=== PATIENT | male | born 1965 | race Caucasian/White ===

== ENCOUNTER → 2016-11-17 | Outpatient (CLI) | payer OTHER ==
--- NOTE | 2016-11-17 09:50 | PCVCIMAG ---
APPROVED REPORT Study performed: 11/17/2016 09:02:27 EXAM: Comprehensive 2D, Doppler, and color-flow Echocardiogram Status: routine Other Information Study Quality: Adequate Risk Factors: Cardiac Risk Factors: HTN Indications Rule out Endocarditis 2D Dimensions LVEF(%): 49.32 (>50%) IVSd: 11.43 (7-11mm) LVDd: 54.96 mm PWd: 11.29 (7-11mm) LVDs: 41.09 (25-40mm) Left Atrium: 41.14 (27-40mm) Aortic Root: 34.89 mm LV Single Plane 4CH: 53.19 % LV Single Plane 2CH: 56.52 %Damico's LVEF: 54.85 % Biplane EF: 55.0 % Volumes Left Atrial Volume (Systole) Single Plane 4CH: 93.82 mLSingle Plane 2CH: 93.52 mL LA ESV Index: 37.00 mL/m2 Aortic Valve AoV Peak Anival.: 1.52 m/s AO Peak Gr.: 9.19 mmHgLVOT Max P.15 mmHg LVOT Max V: 1.02 m/s Mitral Valve E/A Ratio: 0.8 MV Decel. Time: 303.96 ms MV E Max Anival.: 0.53 m/s MV A Anival.: 0.63 m/s IVRT: 103.81 ms Pulmonary Valve PV Peak Anival.: 0.99 m/sPV Peak Gr.: 3.95 mmHg Pulmonary Vein P Vein S: 0.43 m/sP Vein A: 0.36 m/s P Vein D: 0.50 m/sP Vein A Dur.: 131.5 msec P Vein S/D Ratio: 0.86 Tricuspid Valve TR Peak Anival.: 2.36 m/s TR Peak Gr.: 22.35 mmHg Left Ventricle The left ventricle is normal size. There is normal LV segmental wall motion. There is normal left ventricular wall thickness. Left ventricular systolic function is normal. The left ventricular ejection fraction is within the normal range. LVEF is 55%. Grade I - abnormal relaxation pattern. Right Ventricle The right ventricle is normal size. The right ventricular systolic function is normal. Atria Left atrium is upper limits of normal is size The right atrium size is normal. Aortic Valve The aortic valve is normal in structure. No aortic regurgitation is present. There is no aortic valvular stenosis. Mitral Valve The mitral valve is normal in structure. Mild mitral regurgitation. No evidence of mitral valve stenosis. Tricuspid Valve The tricuspid valve is normal in structure. There is no tricuspid valve regurgitation noted. Pulmonic Valve The pulmonary valve is normal in structure. There is no pulmonic valvular regurgitation. Great Vessels The aortic root is normal in size. IVC is normal in size and collapses with >50% inspiration Pericardium There is no pericardial effusion. <Conclusion> Left ventricular systolic function is normal. There is normal LV segmental wall motion. LVEF is 55%. Grade I diastolic dysfunction The aortic valve is normal in structure. No aortic valvular stenosis or insufficiency. The mitral valve is normal in structure. Mild mitral regurgitation. Pulmonary artery pressure of 30mmHg. There is no pericardial effusion.
== END | disposition home or self-care (01) ==
LOC: PCVCIMAG 08:50
PROVIDERS: ATTEND Internal Medicine
DX: I34.0 Nonrheumatic mitral (valve) insufficiency (principal)
CPT/HCPCS: 93306